=== PATIENT | male | born 1990 | race Caucasian/White ===

== ENCOUNTER 2019-10-28 13:37 | Emergency (ER) | payer BC, SELFPAY ==
[2019-10-28 13:47] VITALS: BP 141/85; PULSE 117; RESP 16; TEMP 37.2; O2SAT 100; BMI 27.8
--- NOTE | 2019-10-28 14:01 | ED_ITS ---
HPI - Skin/Abscess/Foreign Bdy General: Chief complaint: Skin/Abscess/Foreign Body Stated complaint: Knot on back Time Seen by Provider: 10/28/19 13:52 Source: patient Mode of arrival: ambulatory Limitations: no limitations History of Present Illness: HPI narrative: Patient comes in with sore to his low back starting 4 days ago. Patient reports tenderness and pain. Patient de nies any previous episodes of abscess or boil. Patient appears well. Patient appears in moderate pain. Review of Systems General: Reports: 10 or more systems reviewed and unremarkable except in HPI and below Skin/Breast: Reports: new lesion PFSH ED PFSH: Statuses (acute, chronic, etc) shown below reflect problem list status as previously entered and may not be historically accurate Social History Smoking and tobacco status: never smoked Physical Exam Const: COMMON NORMALS: no apparent distress and oriented x3 GENERAL APPEARANCE: cooperative HENMT: COMMON NORMALS: normocephalic, external ears normal, EAC's normal, TM's normal bilaterally and external nose normal HEAD & SCALP: normal to inspection and normocephalic FACE & SINUS: normal facial exam NOSE: external nose normal GENERAL EAR: hearing not grossly impaired EXTERNAL EAR: Yes external ears normal EXTERNAL AUDITORY CANAL: EAC's normal TYMPANIC MEMBRANE: TM's normal bilaterally MOUTH: oral and palatal mucosa normal THROAT: posterior oropharynx normal Eye: COMMON NORMALS: PERRL and EOMs intact bilaterally PUPIL: Yes PERRL Neck/C-Spine: COMMON NORMALS: full ROM and no lymphadenopathy Lymph: LYMPHATIC: no lymphedema noted Chest: COMMONS NORMALS: inspection of chest normal and palpation of chest normal Resp: COMMON NORMALS: normal respiratory effort and clear to auscultation bilaterally AUSCULTATION: clear to auscultation bilaterally Cardio: COMMON NORMALS: regular rate and regular rhythm RATE: regular rate RHYTHM: regular rhythm GI: COMMON NORMALS: normal to inspection, nondistended, normoactive bowel sounds and non-tender : COMMON NORMALS: Yes no CVA tenderness BLADDER/KIDNEY EXAM: Yes no CVA tenderness Back/Pelvis: COMMON NORMALS: no CVA tenderness and thoracic and lumbar spine normal to inspection Extremity: COMMON NORMALS: normal to inspection GENERAL: No edema Neuro: COMMON NORMALS: oriented x3, moves all extremities and no focal motor deficits Psych: COMMON NORMALS: mental status grossly normal and cooperative Skin: LESIONS: lesion noted (carbuncle lesion to low center back with 5cm induration and redness) Course Vital Signs: Vital signs: Vital Signs Temperature 98.9 F 10/28/19 13:47 Pulse Rate 117 H 10/28/19 13:47 Respiratory Rate 16 10/28/19 13:47 Blood Pressure 141/85 10/28/19 13:47 Pulse Oximetry 100 10/28/19 13:47 MDM - Skin/Abscess/Foreign Bdy MDM Narrative: Medical decision making narrative: Patient comes in today with complaints of sore to the lower mid back. On exam patient has a carbuncle lesion to the lower back that approximately 5 cm with redness and induration. Some central scab eschar is noted to the lesion with drainage. Differential diagnosis carbuncle, abscess, cellulitis. Reviewed with patient recommendations for treatment. Including hot packs antibiotics and follow-up in 3 days. 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 Discharge Plan Discharge Patient Disposition: Home, Self-Care Clinical Impression: Carbuncle and furuncle of buttock Condition: Stable Prescriptions: New ibuprofen 800 mg tablet 800 mg PO Q8H PRN (Reason: pain) Qty: 30 RF: 0 clindamycin HCl 150 mg capsule 300 mg PO QID 10 Days Qty: 80 RF: 0 Discharge Orders: Discharge Order (Routine); Ordered 10/28/19 Ordered By: Blue Babin Discharge Diet: Usual diet Discharge Activity: Increase activity as tolerated Patient Instructions: Furunculosis and Carbunculosis (ED) Activity Restrictions/Additional Instructions: Warm, hot packs to the area Keep covered when draining Avoid proding lesion antibiotics as directed Acetaminophen and ibuprofen for pain Drink plenty of water with medications Follow-up with primary care in three days for recheck Return to ER for high fever or new concerns Coding Level of Care Code ED Machine Mover for Dm Naqvi Exam Problem Focused
[2019-10-28] MEDS: HYDROcodone-acetaminophen 7.5-325 mg Tablet 1 TAB PO (14:12)
[2019-10-28] MEDS: clindamycin 150 mg Capsule 300 MG PO (14:14)
[2019-10-28 14:19] VITALS: BP 131/102; PULSE 129; RESP 20; O2SAT 99
== END 2019-10-28 14:21 | disposition home or self-care (01) ==
LOC: ER 14:17
PROVIDERS: Emergency Provider Nurse Practitioner Family
DX: L02.33 Carbuncle of buttock (principal); L02.32 Furuncle of buttock
CPT/HCPCS: 99281

== ENCOUNTER → 2020-07-14 16:26 | Outpatient (BNVA) | payer SELFPAY | PROVIDERS: PCP Nurse Practitioner Family; Visit Provider Nurse Practitioner Family | DX: R82.998 Other abnormal findings in urine (principal) | CPT/HCPCS: 81000 ==

== ENCOUNTER → 2020-07-30 11:00 | Outpatient (BNVA) | payer SELFPAY | PROVIDERS: PCP Nurse Practitioner Family; Visit Provider Nurse Practitioner Family | DX: R42 Dizziness and giddiness (principal) | CPT/HCPCS: 80053; 85025 ==

== ENCOUNTER → 2021-01-19 11:45 | Outpatient (BNVA) | payer OTHER, SELFPAY | PROVIDERS: PCP Nurse Practitioner Family; Visit Provider Nurse Practitioner Family | DX: Z20.818 Contact with and (suspected) exposure to other bacterial communicable diseases (principal) | CPT/HCPCS: 87635 ==

== ENCOUNTER → 2021-03-04 11:02 | Outpatient (BNVA) | payer SELFPAY | PROVIDERS: PCP Nurse Practitioner Family; Visit Provider Nurse Practitioner Family | DX: J02.9 Acute pharyngitis, unspecified (principal); R51.9 Headache, unspecified; Z20.822 Contact with and (suspected) exposure to COVID-19 | CPT/HCPCS: 87635 ==